=== PATIENT | male | born 1955 | race Two or more races ===

== ENCOUNTER 2018-02-10 08:28 | Outpatient (CLI) | payer OTHER | END 2018-02-10 09:00 | disposition home or self-care (01) | LOC: RAD 501 08:28 | DX: N20.1 Calculus of ureter (principal) ==

== ENCOUNTER 2018-04-03 07:29 | Outpatient (CLI) | payer OTHER | END 2018-04-03 08:50 | disposition home or self-care (01) | LOC: TOM 07:29 | DX: N20.0 Calculus of kidney (principal); R31.29 Other microscopic hematuria; E11.9 Type 2 diabetes mellitus without complications ==